=== PATIENT | male | born 1955 | race Hispanic/Latino ===

== ENCOUNTER 2022-01-31 16:38 | Emergency (ER) | payer MEDICARE ==
[2022-01-31 21:47] LABS: Basophils # (Auto) 0.1 K/mm3 (0.0-0.1); Basophils % (Auto) 0.9 % (0.0-1.8); Eosinophils # (Auto) 0.3 K/mm3 (0.0-0.4); Eosinophils % (Auto) 2.9 % (0.0-4.3); Hemoglobin 13.3 gm/dl (11.8-15.2); Lymphocytes # (Auto) 2.5 K/mm3 (1.2-5.4); Lymphocytes % (Auto) 28.7 % (13.4-35.0); Mean Corpuscular HGB Conc 33 % (32-34); Mean Corpuscular Volume 91 fl (84-94); Monocytes # (Auto) 0.5 K/mm3 (0.0-0.8); Monocytes % (Auto) 5.7 % (0.0-7.3); Platelet Count 159 K/mm3 (140-440); Red Blood Count 4.53 M/mm3 (3.65-5.03); Red Cell Distribution Width 14.9 % (13.2-15.2)
--- NOTE | 2022-01-31 21:53 | XRay Report ---
Chest single view INDICATION: Cough with weakness IMPRESSION: There is patchy airspace disease within both lower lungs concerning for pneumonia versus pulmonary edema. The heart is mildly enlarged. Signer Name: Rojelio Douglas MD Signed: 01/31/2022 9:49 PM Workstation Name: [id number]
[2022-01-31 21:57] LABS: INR 1.02 (0.87-1.13)
[2022-01-31 21:58] LABS: Partial Thromboplastin Time 29.7 Sec. (24.2-36.6)
[2022-01-31 22:03] LABS: Mucus,Urine FEW /HPF; RBC,Urine < 1.0 /HPF (0.0-6.0); WBC,Urine < 1.0 /HPF (0.0-6.0)
[2022-01-31 22:08] LABS: Bilirubin,Urine Negative (Negative); Blood,Urine Negative (Negative); Color,Urine Yellow (Yellow)
[2022-01-31 22:18] LABS: Alanine Aminotransferase 27 units/L (7-56); Albumin 3.3 g/dL (3.9-5); BUN/Creatinine Ratio 11; Blood Urea Nitrogen 10 mg/dL (9-20); Calcium 10.4 mg/dL (8.4-10.2); Hemolysis Index 19
--- NOTE | 2022-01-31 22:23 | Emergency Department Report ---
<JANEL MORRISSEY - Last Filed: 02/01/22 01:18> - General Chief complaint: Weakness Stated complaint: NOT FEELING GOOD Time Seen by Provider: 01/31/22 21:29 Source: patient Mode of arrival: Stretcher Limitations: No Limitations - History of Present Illness Initial comments: 66 yo M with h/o DM and hypertension and CHF who present with generalized weakness for that last couple of days. Pt says his right foot is hurting and did not want to take a chance because of his diabetic. Pt also mentioned that he keeps his Klogs on for more than 23 hours per day because he is homeless. Pt however denies any fever or chills. No other modifying or associated factors reported. MD Complaint: generalized weakness Severity scale (0 -10): 0 - Related Data Previous Rx's Medication Instructions Recorded Last Taken Type Gabapentin 300 mg PO Q8HR #90 capsule 02/02/22 Unknown Rx Ibuprofen [Motrin] 600 mg PO Q8H PRN #30 tablet 02/02/22 Unknown Rx Sulfamethoxazole/Trimethoprim 1 each PO Q12H #20 tab 02/02/22 Unknown Rx [Bactrim DS TAB] Allergies Allergy/AdvReac Type Severity Reaction Status Date / Time Penicillins Allergy Rash Verified 02/01/22 17:16 ED Review of Systems Comment: All other systems reviewed and negative Constitutional: weakness Musculoskeletal: other (foot pain ) ED Past Medical Hx - Past Medical History Previous Medical History?: Yes Hx Hypertension: Yes Hx Congestive Heart Failure: Yes Hx Diabetes: Yes Additional medical history: a-fib - Surgical History Past Surgical History?: No - Medications Home Medications: Home Medications Medication Instructions Recorded Confirmed Last Taken Type Gabapentin 300 mg PO Q8HR #90 capsule 02/02/22 Unknown Rx Ibuprofen [Motrin] 600 mg PO Q8H PRN #30 tablet 02/02/22 Unknown Rx Sulfamethoxazole/Trimethoprim 1 each PO Q12H #20 tab 02/02/22 Unknown Rx [Bactrim DS TAB] ED Physical Exam - General Limitations: No Limitations General appearance: alert, in no apparent distress, obese - Head Head exam: Present: normal inspection - Eye Eye exam: Present: normal appearance Pupils: Present: normal accommodation - ENT ENT exam: Present: normal exam, normal orophraynx, mucous membranes moist - Neck Neck exam: Present: normal inspection, full ROM. Absent: tenderness - Respiratory Respiratory exam: Present: normal lung sounds bilaterally. Absent: respiratory distress, accessory muscle use - Cardiovascular Cardiovascular Exam: Present: regular rate, normal rhythm, normal heart sounds - GI/Abdominal GI/Abdominal exam: Present: soft, normal bowel sounds. Absent: distended, tenderness - Extremities Exam Extremities exam: Present: tenderness (very small sore spots on medial aspect of right foot--no open wound observed), normal capillary refill. Absent: pedal edema - Back Exam Back exam: Absent: tenderness - Neurological Exam Neurological exam: Present: alert, oriented X3 - Psychiatric Psychiatric exam: Present: normal affect, normal mood - Skin Skin exam: Present: warm, normal color ED Medical Decision Making - Lab Data Result diagrams: 01/31/22 21:38 01/31/22 21:38 - EKG Data -: EKG Interpreted by Me - EKG Data 02/01/22 01:18 noted with atrial fibrillation with RAD in the abnormal ECG - Medical Decision Making here with generalized weakness --this could be among other differentials including and infectious process such as UTI or pneumonia or cellulitis or hyperglycemic states considering history of diabetes--to rule this out will order routine labs including CBC, CMP, UA Lab reviewed and noted with elevated blood sugar 226 mg/dl -- with patient history of DM -- UA noted to be unremarkable -- pt reassured and d/c home to aerate his foot for more than one hour per day -- ED Disposition Clinical Impression: Generalized weakness Disposition: 01 HOME / SELF CARE / HOMELESS Is pt being admited?: No Does the pt Need Aspirin: No Condition: Stable Instructions: Weakness, [id number] Additional Instructions: It is very important that you aerate your foot at least 3-4 hours in 12 hours to prevent infection Continue your current medication as prescribed by your doctor Call and follow up with your doctor in the next 3-5 days for progress Please do not hesitate to call or return to eD if your symptoms worsen Referrals: KATERYNA IBARRA MD [Primary Care Provider] - 3-5 Days Time of Disposition: 01:13 <JANIS DALE - Last Filed: 02/04/22 08:56> ED Review of Systems ROS: Stated complaint: NOT FEELING GOOD Other details as noted in HPI ED Course Vital Signs 07/01/31/22 01/31/22 16:41 21:08 21:11 Temperature 98 F Pulse Rate 88 98 H Respiratory 16 15 Rate Blood Pressure 160/90 151/94 [Left] O2 Sat by Pulse 98 97 98 Oximetry 01/31/22 02/01/22 02/01/22 21:43 00:10 02:01 Temperature 98.0 F Pulse Rate 83 83 82 Respiratory 15 15 Rate Blood Pressure 150/100 155/86 [Left] O2 Sat by Pulse 98 98 Oximetry - Reevaluation(s) Reevaluation #1: 02/03/22 08:05 pt still in waiting room -waiting on ride RN aware ED Medical Decision Making - Lab Data Result diagrams: 01/31/22 21:38 01/31/22 21:38 Critical care attestation.: If time is entered above; I have spent that time in minutes in the direct care of this critically ill patient, excluding procedure time. ED Disposition Is pt being admited?: No Does the pt Need Aspirin: No
[2022-02-01 02:02] VITALS: BP 155/86
--- NOTE | 2022-02-01 09:48 | Electrocardiograph Report ---
[facility] Test Date: 2022-01-31 Test Time: 21:02:28 Pat Name: TERELL PRO Department: Room: Gender: M Director [employer]: NURSE : 1955 Requested By: JANEL MORRISSEY Order Number: [id number] Reading MD: Jimmy Lane Measurements Intervals [place] Rate: 101 P: OK: QRS: 110 QRSD: 77 T: 19 QT: 325 QTc: 421 Interpretive Statements Atrial fibrillation Right axis deviation Consider anterior infarct No previous ECG available for comparison Electronically Signed On 02-01-2022 9:48:[address]
== END 2022-02-01 01:45 | disposition home or self-care (01) ==
LOC: ED 16:38
DX: R53.1 Weakness (principal); I11.0 Hypertensive heart disease with heart failure; I50.9 Heart failure, unspecified; E11.9 Type 2 diabetes mellitus without complications; Z88.1 Allergy status to other antibiotic agents; Z79.899 Other long term (current) drug therapy
CPT/HCPCS: 36415; 71045; 80053; 81001; 84484; 85025; 85610; 85730; 93005; 99284

== ENCOUNTER 2022-02-01 17:09 | Emergency (ER) | payer MEDICARE ==
[2022-02-02] MEDS ORDERED: IBUPROFEN 600 MG TAB PO ONE (00:07)
[2022-02-02] MEDS ORDERED: GABAPENTIN 400 MG CAP PO ONE (00:07)
[2022-02-02 01:46] LABS: Alanine Aminotransferase 22 units/L (7-56); Albumin 3.6 g/dL (3.9-5); BUN/Creatinine Ratio 9; Blood Urea Nitrogen 10 mg/dL (9-20); Calcium 10.6 mg/dL (8.4-10.2); Hemolysis Index 3
[2022-02-02 02:01] LABS: Basophils # (Auto) 0.1 K/mm3 (0.0-0.1); Basophils % (Auto) 0.8 % (0.0-1.8); Eosinophils # (Auto) 0.3 K/mm3 (0.0-0.4); Eosinophils % (Auto) 3.1 % (0.0-4.3); Hematocrit 43.2 % (35.5-45.6); Hemoglobin 14.1 gm/dl (11.8-15.2); Lymphocytes # (Auto) 2.7 K/mm3 (1.2-5.4); Lymphocytes % (Auto) 30.8 % (13.4-35.0); Mean Corpuscular HGB Conc 33 % (32-34); Mean Corpuscular Volume 91 fl (84-94); Monocytes # (Auto) 0.7 K/mm3 (0.0-0.8); Monocytes % (Auto) 7.8 % (0.0-7.3); Platelet Count 179 K/mm3 (140-440); Red Blood Count 4.74 M/mm3 (3.65-5.03); Red Cell Distribution Width 15.4 % (13.2-15.2)
[2022-02-02] MEDS ORDERED: SULFAMETHOXAZOLE/TRIMETHOPRIM 800/160MG DS TAB PO ONE (02:29)
--- NOTE | 2022-02-02 02:33 | Emergency Department Report ---
ED Extremity Problem HPI - General Chief complaint: Extremity Injury, Lower Stated complaint: BILATERAL LEG PAIN/DIXXY Time Seen by Provider: 02/01/22 17:24 Source: patient, EMS Mode of arrival: Stretcher Limitations: Physical Limitation - History of Present Illness Initial comments: Patient is a 66-year-old male with a history of coronary artery disease, thq-metylph-kjkdrwwof diabetes, CHF and chronic peripheral neuropathy who presents to the ED with complaint of acute exacerbation of his chronic lower extremity pain for the last 1 week. Patient also states that he also developed mild erythematous rashes on his lower extremities. Patient denies fall, traumatic injury, numbness and tingling or weakness of lower extremities bilaterally, chest pain, shortness of breath, nausea and vomiting, fever, chills, low back pain, hip pain, abdominal pain, dizziness or cough. MD Complaint: extremity pain (bilateral lower leg pain, swelling), extremity swelling (bilateral lower extremity swelling), joint paint -: Gradual, week(s) (1) Location: bilateral lower extremity History of Same: Yes -: Yes myalgia, Yes arthralgia, No fever, No associated dyspnea, No associated chest pain Radiation: distal Severity scale (0 -10): 6 Quality: aching, sharp Consistency: constant Improves with: nothing Worsens with: weight bearing, walking, palpation Associated Symptoms: denies other symptoms, arthralgias. denies: chest pain, shortness of breath, fever, myalgias - Related Data Previous Rx's Medication Instructions Recorded Last Taken Type Gabapentin 300 mg PO Q8HR #90 capsule 02/02/22 Unknown Rx Ibuprofen [Motrin] 600 mg PO Q8H PRN #30 tablet 02/02/22 Unknown Rx Sulfamethoxazole/Trimethoprim 1 each PO Q12H #20 tab 02/02/22 Unknown Rx [Bactrim DS TAB] Allergies Allergy/AdvReac Type Severity Reaction Status Date / Time Penicillins Allergy Rash Verified 02/01/22 17:16 ED Review of Systems ROS: Stated complaint: BILATERAL LEG PAIN/DIXXY Other details as noted in HPI Constitutional: denies: chills, fever Eyes: denies: eye pain, eye discharge, vision change ENT: denies: ear pain, throat pain Respiratory: denies: cough, shortness of breath, wheezing Cardiovascular: denies: chest pain, palpitations Endocrine: no symptoms reported Gastrointestinal: denies: abdominal pain, nausea, vomiting, diarrhea Genitourinary: denies: urgency, dysuria Musculoskeletal: joint swelling (bilateral ankle swelling), arthralgia (bilateral lower extremity pain). denies: back pain Skin: denies: rash, lesions Neurological: denies: headache, weakness, paresthesias Psychiatric: denies: anxiety, depression Hematological/Lymphatic: denies: easy bleeding, easy bruising ED Past Medical Hx - Past Medical History Previous Medical History?: Yes Hx Hypertension: Yes Hx Congestive Heart Failure: Yes Hx Diabetes: Yes Additional medical history: a-fib - Medications Home Medications: Home Medications Medication Instructions Recorded Confirmed Last Taken Type Gabapentin 300 mg PO Q8HR #90 capsule 02/02/22 Unknown Rx Ibuprofen [Motrin] 600 mg PO Q8H PRN #30 tablet 02/02/22 Unknown Rx Sulfamethoxazole/Trimethoprim 1 each PO Q12H #20 tab 02/02/22 Unknown Rx [Bactrim DS TAB] ED Physical Exam - General Limitations: Physical Limitation General appearance: alert, in no apparent distress - Head Head exam: Present: atraumatic, normocephalic, normal inspection - Eye Eye exam: Present: normal appearance, PERRL, EOMI Pupils: Present: normal accommodation - ENT ENT exam: Present: normal exam, normal orophraynx, mucous membranes moist, TM's normal bilaterally, normal external ear exam - Neck Neck exam: Present: normal inspection, full ROM. Absent: tenderness, meningismus - Respiratory Respiratory exam: Present: normal lung sounds bilaterally. Absent: respiratory distress, wheezes, rales, rhonchi, stridor, chest wall tenderness, accessory muscle use, decreased breath sounds, prolonged expiratory - Cardiovascular Cardiovascular Exam: Present: regular rate, normal rhythm, normal heart sounds. Absent: systolic murmur, diastolic murmur, rubs, gallop - GI/Abdominal GI/Abdominal exam: Present: soft, normal bowel sounds. Absent: tenderness, guarding, rebound, hyperactive bowel sounds, hypoactive bowel sounds, organomegaly - Extremities Exam Extremities exam: Present: normal inspection, full ROM, tenderness (Bilateral LE tenderness and mild swelling), normal capillary refill, calf tenderness (bilateral lower extremity calf tenderness). Absent: pedal edema, joint swelling - Back Exam Back exam: Present: normal inspection, full ROM. Absent: tenderness, CVA tenderness (R), CVA tenderness (L), muscle spasm, paraspinal tenderness, vertebral tenderness, rash noted - Neurological Exam Neurological exam: Present: alert, oriented X3, CN II-XII intact, normal gait, reflexes normal - Psychiatric Psychiatric exam: Present: normal affect, normal mood - Skin Skin exam: Present: warm, dry, intact, normal color, rash (Mildly erythematous rash on lower extremities bilaterally) ED Course Vital Signs 02/01/22 17:13 Temperature 97.3 F L Pulse Rate 111 H Respiratory 16 Rate Blood Pressure 145/87 [Left] O2 Sat by Pulse 95 Oximetry ED Medical Decision Making - Lab Data Result diagrams: 02/02/22 01:04 02/02/22 01:04 - Radiology Data Radiology results: report reviewed, image reviewed - Medical Decision Making This is a 66-year-old male with a history of coronary artery disease, ngk-kemswqp-tjmyuklik diabetes, CHF and chronic peripheral neuropathy who presents to the ED with complaint of acute exacerbation of his chronic lower extremity pain for the last 1 week. Patient also states that he also developed mild erythematous rashes on his lower extremities. In the ED, patient is alert and oriented x3 and is not in any distress. Patient was treated for pain in the ED. All lab test results were reviewed and are all nonactionable. Bilateral lower extremity Doppler ultrasound showed no sonographic evidence of DVT. Patient was discharged home on medications and advised to follow-up with his primary care physician in 7 to 10 days for reevaluation or return to the ED immediately if symptoms get worse. - Differential Diagnosis cellulitis, DVT, Muscle strain, Neuropathy Critical care attestation.: If time is entered above; I have spent that time in minutes in the direct care of this critically ill patient, excluding procedure time. ED Disposition Clinical Impression: Localized swelling of both lower legs, Cellulitis of lower leg Muscle strain of lower extremity Qualifiers: Encounter type: initial encounter Laterality: unspecified laterality Qualified Code(s): S86.919A - Strain of unspecified muscle(s) and tendon(s) at lower leg level, unspecified leg, initial encounter Peripheral neuropathy Qualifiers: Peripheral neuropathy type: polyneuropathy, unspecified Qualified Code(s): G62.9 - Polyneuropathy, unspecified Disposition: 01 HOME / SELF CARE / HOMELESS Is pt being admited?: No Does the pt Need Aspirin: No Condition: Stable Instructions: Muscle Strain, Kqzh-[id number], Cellulitis, Adult, [id number], Peripheral Neuropathy Additional Instructions: All lab test results were reviewed and are all unremarkable. The bilateral lower extremity doppler US showed no sonographic evidence of DVT. Therefore take medications as advised, drink plenty of fluids and follow up with your Primary Care Physician in 7-10 days for reevaluation. Return to the ED immediately if symptoms get worse. Prescriptions: Sulfamethoxazole/Trimethoprim [Bactrim DS TAB] 1 each PO Q12H #20 tab Gabapentin 300 mg PO Q8HR #90 capsule Ibuprofen [Motrin] 600 mg PO Q8H PRN #30 tablet PRN Reason: Pain Referrals: [facility] [Provider Group] - 7-10 days Time of Disposition: 02:36 Print Language: UPPER SORBIAN
--- NOTE | 2022-02-02 03:40 | Vascular Lab Report ---
DUPLEX DOPPLER LOWER EXTREMITY VEINS, BILATERAL INDICATION / CLINICAL INFORMATION: Bilateral LE pain, swelling and erythematous rash. TECHNIQUE: Duplex doppler imaging was performed through the veins of both lower extremities using ronnell ous compression and other maneuvers. COMPARISON: None available. FINDINGS: RIGHT COMMON FEMORAL VEIN: Negative. RIGHT FEMORAL VEIN: Negative. RIGHT POPLITEAL VEIN: Negative. RIGHT CALF VEINS: Negative. LEFT COMMON FEMORAL VEIN: Negative. LEFT FEMORAL VEIN: Negative. LEFT POPLITEAL VEIN: Negative. LEFT CALF VEINS: Negative. ADDITIONAL FINDINGS: None. IMPRESSION: 1. No sonographic evidence for DVT in either lower extremity. Signer Name: Nabeel Rocha MD Signed: 02/02/2022 3:36 AM Workstation Name: [id number]
[2022-02-02 04:25] VITALS: BP 160/72
== END 2022-02-02 04:26 | disposition home or self-care (01) ==
LOC: ED 17:09
DX: S86.919A Strain of unspecified muscle(s) and tendon(s) at lower leg level, unspecified leg, initial encounter (principal); M79.89 Other specified soft tissue disorders; L03.116 Cellulitis of left lower limb; L03.115 Cellulitis of right lower limb; I10 Essential (primary) hypertension; E11.9 Type 2 diabetes mellitus without complications; Z88.0 Allergy status to penicillin; G62.9 Polyneuropathy, unspecified; X58.XXXA Exposure to other specified factors, initial encounter; Y93.89 Activity, other specified; Y92.89 Other specified places as the place of occurrence of the external cause; Y99.8 Other external cause status
CPT/HCPCS: 36415; 80053; 83880; 85025; 93970; 99284